=== PATIENT | female | born 1990 | race Caucasian/White ===

== ENCOUNTER 2016-08-05 15:10 | Outpatient (CLI) | payer OTHER ==
[2016-08-05 16:19] LABS: ALT (SGPT) 21 U/L (0-55); AST (SGOT) 17 U/L (5-34); Alkaline Phosphatase 77 U/L (40-150); Bilirubin, Direct 0.3 mg/dL (0.1-0.3); Bilirubin, Total 0.8 mg/dL (0.2-1.2); Protein, Total 7.8 g/dL (6.0-8.3)
== END 2016-08-05 15:11 | disposition home or self-care (01) ==
LOC: NAV SJFMSP 15:10
PROVIDERS: ATTEND Family Medicine
DX: R42 Dizziness and giddiness (principal)
CPT/HCPCS: 80074; 80076; 84702

== ENCOUNTER 2016-08-12 08:13 | Outpatient (CLI) | payer OTHER, SELFPAY | END 2016-08-12 08:14 | LOC: NAV SJFMSP 08:13 | PROVIDERS: ATTEND Family Medicine | DX: R42 Dizziness and giddiness (principal) | CPT/HCPCS: 84702 ==

== ENCOUNTER 2016-08-14 10:20 | Outpatient (CLI) | payer OTHER | END 2016-08-14 10:21 | disposition home or self-care (01) | LOC: NAV LAB 10:20 | PROVIDERS: ATTEND Family Medicine | DX: Z32.00 Encounter for pregnancy test, result unknown (principal) | CPT/HCPCS: 84702 ==

== ENCOUNTER 2016-09-02 08:29 | Outpatient (CLI) | payer OTHER, SELFPAY | END 2016-09-02 08:30 | LOC: NAV LAB 08:29 | PROVIDERS: ATTEND Family Medicine | DX: Z32.01 Encounter for pregnancy test, result positive (principal) | CPT/HCPCS: 36415; 84702 ==

== ENCOUNTER 2016-09-13 09:14 | Outpatient (CLI) | payer BC, OTHER, SELFPAY | END 2016-09-13 09:15 | disposition home or self-care (01) | LOC: NAV LAB 09:14 | PROVIDERS: ATTEND Family Medicine | DX: Z32.01 Encounter for pregnancy test, result positive (principal) | CPT/HCPCS: 84702 ==